=== PATIENT | female | born 1955 | race Two or more races ===

== ENCOUNTER → 2024-08-25 | Outpatient (CLI) | payer MEDICARE, MEDICAID, SELFPAY ==
--- NOTE | 2024-08-25 | XR_ITS ---
Examination: CT chest, without intravenous contrast. Sagittal and coronal 2-D reconstructions. Exam date and time: August 25, 2024 1051 hours INDICATIONS: 3 mm pulmonary nodule superior segment left lower lobe on CT chest April 23, 2021 12 years CTDI:vol (mGy) 9.56 DLP: (mGycm) 335 Technique: Multiple 3.0 mm axial sections of the chest to been obtained. Bone and lung density settings are obtained. Sagittal and coronal 2-D reconstructions have been obtained. Low dose protocols were performed. One or more of the following dose reduction techniques were used; automated exposure control, adjustment of the mA and/or KV according to patient size, use of iterative reconstruction technique. Findings: No thoracic aortic aneurysm dilatation Pulmonary artery segments are not enlarged No paratracheal tracheobronchial or bronchopulmonary adenopathy 2 mm pulmonary nodule left upper lobe Interval 8mm pulmonary nodule lingular segment No pneumonia or pulmonary edema Fatty infiltration throughout the liver with multiple liver cysts Spleen not enlarged No gallstones No pancreatic mass Kidneys partially visualized no hydronephrosis IMPRESSION: Interval 8mm pulmonary nodule lingular segment, recommend continued 6 month follow-up CT chest without contrast
== END | disposition home or self-care (01) ==
PROVIDERS: PCP Physician Assistant Medical; Referring Provider Physician Assistant Medical; Visit Provider Physician Assistant Medical
DX: R91.1 Solitary pulmonary nodule (principal)
CPT/HCPCS: 71250

== ENCOUNTER → 2025-02-19 | Outpatient (CLI) | payer MEDICARE, MEDICAID, SELFPAY ==
--- NOTE | 2025-02-19 09:54 | XR_ITS ---
Examination: Diagnostic digital mammography, bilateral Computer aided detection 3-D breast Tomosynthesis, bilateral Date and time of exam: February 19, 2025 1011 hours INDICATIONS: Mammogram 06/16/2024 6 mm nodule with microcalcifications nipple level left breast, 8 mm focal asymmetry upper inner right breast Technique: Nonmagnified MLO, CC views of the breasts to been obtained, reconstructed from 3-D Tomosynthesis images. R2 computer aided detection program utilized for evaluation of suspicious masses and/or abnormal calcifications. 3-D Tomosynthesis images obtained. Findings: The breasts are heterogeneously dense, which may obscure small masses No suspicious mass is depicted Suspicious nodule with microcalcifications is depicted 4:00 position left breast, corresponding to suspicious nodule noted on left breast sonogram today Left breast sonogram today also identify 6:00 suspicious nodule left breast Impression: BI-RADS Category 4: Suspicious for malignancy Mammogram and sonographic images today demonstrate suspicious nodules left breast 4:00 and 6:00 Biopsy both nodules is needed to exclude breast carcinoma, these nodules are amenable to ultrasound-guided breast biopsy for diagnosis.
--- NOTE | 2025-02-19 09:55 | XR_ITS ---
Examination: Breast ultrasound complete, bilateral Date and time of exam: February 19, 2025 1021 hours INDICATIONS: Upper right breast pain beginning 3 days ago, mammogram 06/16/2024 18 mm focal asymmetry upper inner right breast Technique: Real-time grayscale ultrasonographic imaging bilateral breasts, including all 4 quadrants as well as nipple retroareolar and axillary regions. Findings: Sonographic images right breast 1:00 mass lobular margins 8 x 8 mm 8:00 cyst 9 x 7 mm Sonographic images left breast 4:00 nodule indistinct margins 25 x 18 mm 5:00 nodule circumscribed 9 x 10 mm 6:00 nodule indistinct margins 12 x 9 mm Retroareolar nodule lobular margins 10 x 8 mm IMPRESSION: BI-RADS Category 4: Suspicious for malignancy Suspicious masses left breast 4:00 and 6:00 position, biopsy both nodules needed to exclude breast carcinoma These nodules are amenable to ultrasound-guided breast biopsy for diagnosis
== END | disposition home or self-care (01) ==
LOC: CDIM 09:37
PROVIDERS: PCP Physician Assistant Medical; Referring Provider Physician Assistant Medical; Visit Provider Physician Assistant Medical
DX: R92.343 Mammographic extreme density, bilateral breasts (principal); N63.25 Unspecified lump in the left breast, overlapping quadrants; N63.23 Unspecified lump in the left breast, lower outer quadrant
CPT/HCPCS: 76641; 77062; 77066; G0279

== ENCOUNTER → 2025-06-07 | Outpatient (CLI) | payer MEDICARE, MEDICAID, SELFPAY ==
[2025-06-04 13:58] LABS: Basophils # (Auto) 0.1 Thou/mm3 (0.0-0.2); Basophils % (Auto) 1 % (0-2.5); Eosinophils # (Auto) 0.5 Thou/mm3 (0.0-0.5); Eosinophils % (Auto) 4 % (0-10); Hematocrit 44.2 % (36.0-46.0); Hemoglobin 15.4 g/dL (12.0-16.0); Immature Granulocytes Auto 0.05 Thou/mm3 (0.00-0.00); Lymphocytes # (Auto) 3.3 Thou/mm3 (1.0-4.8); Lymphocytes % (Auto) 30 % (10-50); Mean Corpuscular HGB Conc 34.8 g/dl (31.0-37.0); Mean Corpuscular Hemoglobin 30.7 pg (25.0-35.0); Mean Corpuscular Volume 88 fL (80-100); Monocytes # (Auto) 0.7 Thou/mm3 (0.0-0.8); Monocytes % (Auto) 7 % (0-12); Neutrophils # (Auto) 6.4 Thou/mm3 (1.8-7.7); Neutrophils % (Auto) 58 % (37-80); Nucleated Red Blood Cell # 0.00 Thou/mm3 (0.00-0.00); Nucleated Red Blood Cell % 0 /100 WBC (0); Platelet Count 312 Thou/mm3 (140-440); RDW Standard Deviation 40.2 fL (36.4-46.3); Red Blood Count 5.01 Miln/mm3 (4.00-5.20); White Blood Count 11.0 Thou/mm3 (3.6-11.0)
[2025-06-04 14:58] LABS: INR 1.0 (0.9-1.3); Partial Thromboplastin Time 25.2 Seconds (22.0-36.0); Prothrombin Time 11.1 Seconds (9.0-12.2)
--- NOTE | 2025-06-07 10:30 | XR_ITS ---
Examinations: Ultrasound-guided percutaneous breast biopsy, left breast 6:00 nodule left Left breast sonography limited INDICATIONS: BI-RADS 4 suspicious nodule 6:00 position left breast on left breast sonogram February 19, 2025. Exam date and time: 06/07/2025 1030 hours. Informed consent provided. Technique: A timeout was completed verifying correct patient, procedure, site, positioning, and special equipment if applicable Informed consent provided. The patient was placed in a supine position for the breast biopsy. Sonographic images of the breast were performed for localization of the suspicious nodule The patient's breast was prepped and draped in sterile fashion. Maximum sterile barrier technique, hand hygiene, ultrasound sterile technique 1% lidocaine was used to anesthetize the skin and breast adjacent to the suspicious nodule. Utilizing ultrasonographic guidance, 8 core biopsies were obtained of the suspicious nodule utilizing an 18-gauge BioPince needle. The specimens appears satisfactory. US guided breast biopsy marker placement. Estimated blood loss 3 cc. The patient tolerated the procedure well and there were no complications. Impression: Successful ultrasound-guided percutaneous breast biopsy, left breast 6:00 nodule. Ultrasound guided breast biopsy marker placement.
--- NOTE | 2025-06-07 10:30 | XR_ITS ---
Examinations: Ultrasound-guided percutaneous breast biopsy, left breast 4:00 nodule Left breast sonography limited INDICATIONS: Left breast sonogram February 19, 2025 BI-RADS 4 suspicious nodule 4:00 position left breast Exam date and time: February 04, 2025 1020 hours. Informed consent provided. Technique: A timeout was completed verifying correct patient, procedure, site, positioning, and special equipment if applicable Informed consent provided. The patient was placed in a supine position for the breast biopsy. Sonographic images of the breast were performed for localization of the suspicious nodule The patient's breast was prepped and draped in sterile fashion. Maximum sterile barrier technique, hand hygiene, ultrasound sterile technique 1% lidocaine was used to anesthetize the skin and breast adjacent to the suspicious nodule. Utilizing ultrasonographic guidance, 8 core biopsies were obtained of the suspicious nodule utilizing an 18-gauge BioPince needle. The specimens appears satisfactory. US guided breast biopsy marker placement. Estimated blood loss 3 cc. The patient tolerated the procedure well and there were no complications. Impression: Successful ultrasound-guided percutaneous breast biopsy, left breast 4:00 nodule. Ultrasound guided breast biopsy marker placement.
== END | disposition home or self-care (01) ==
LOC: SDIM 06-09 08:51
PROVIDERS: Radiology Diagnostic Radiology; PCP Student in an Organized Health Care Education/Training Program; Referring Provider Student in an Organized Health Care Education/Training Program; Visit Provider Student in an Organized Health Care Education/Training Program
DX: C50.912 Malignant neoplasm of unspecified site of left female breast (principal); Z17.0 Estrogen receptor positive status [ER+]; Z17.21 Progesterone receptor positive status; Z17.32 Human epidermal growth factor receptor 2 negative status; D24.2 Benign neoplasm of left breast; N60.12 Diffuse cystic mastopathy of left breast; Z01.812 Encounter for preprocedural laboratory examination
CPT/HCPCS: 19083; 19084; 36415; 85025; 85610; 85730; A4648

== ENCOUNTER → 2025-06-18 | Outpatient (CLI) | payer MEDICARE, MEDICAID, SELFPAY ==
--- NOTE | 2025-06-18 12:00 | XR_ITS ---
Examination: Bone densitometry Date and time of exam:June 18, 2025 1231 hours INDICATIONS: Menopause age 40 vitamin D 2 weeks, history postmenopausal femur fracture, personal history osteopenia Technique: Lumbar spine and forearm total bone mineralization values of an calculated. Peak reference and age match control results have been displayed. Findings: Lumbar spine total bone mineralization is0.825 gm/cm2. This is 2.0 standard deviations below peak reference. This is 0.0 standard deviations at age-matched controls. Forearm total bone mineralization is 0.517 gm/cm2 This is 0.9 standard deviations below peak reference. This is 1.1 standard deviations above age-matched controls Impression: There is osteopenia based on lumbar spine measurements. There is normal mineralization based on forearm measurements Lumbar mineralization is increased 2.8% compared with February 01, 2022 Forearm mineralization is decreased 0.4% compare with February 01, 2022
== END | disposition home or self-care (01) ==
LOC: CDIM 11:51
PROVIDERS: PCP Student in an Organized Health Care Education/Training Program; Referring Provider Physician Assistant Medical; Visit Provider Physician Assistant Medical
DX: M85.88 Other specified disorders of bone density and structure, other site (principal)
CPT/HCPCS: 77080

== ENCOUNTER → 2025-07-01 | Outpatient (CLI) | payer MEDICARE, MEDICAID, SELFPAY ==
--- NOTE | 2025-07-01 14:00 | XR_ITS ---
Examination: Transvaginal ultrasound of the pelvis, complete Technique: Transvaginal sonographic images pelvis performed using mclean scale imaging Exam date and time: July 01, 2025, 1438 hours INDICATION: Postmenopausal bleeding beginning 6 months ago FINDINGS: Uterus 6.5 cm uterine fundal mass with calcifications 2.1 x 1.8 x 2.0 cm Endometrial stripe 0.5 cm Right ovary 1.8 cm arterial flow Left ovary obscured by bowel gas IMPRESSION: Small uterine area of fibroid degeneration, consider 6-month follow-up transvaginal pelvic sonography: .
--- NOTE | 2025-07-01 14:00 | XR_ITS ---
Examination: Pelvic ultrasound, transabdominal, complete Technique: Transabdominal ultrasound of the pelvis performed using grayscale imaging Date and time of exam: July 01, 2025, 1428 hours INDICATIONS: Postmenopausal bleeding beginning 6 months ago FINDINGS: Uterus 8.1 cm uterine fundal mass 2.6 x 2.4 x 2.3 cm Endometrial stripe 0.8 cm Ovaries are obscured by bowel gas IMPRESSION: Small area of uterine fibroid degeneration
== END | disposition home or self-care (01) ==
PROVIDERS: PCP Nurse Practitioner Family; Referring Provider Nurse Practitioner Family; Visit Provider Nurse Practitioner Family
DX: D25.9 Leiomyoma of uterus, unspecified (principal)
CPT/HCPCS: 76830; 76856